=== PATIENT | female | born 1970 | race Caucasian/White ===

== ENCOUNTER → 2016-10-03 | Outpatient (CLI) | payer BC ==
[~2016-10-03] MED LIST: ADDERALL XR 10M10 MG PO; ARTHROTEC 775 MG/TAB PO; CONCERTA18 MG PO; CONCERTA54 MG PO; CYMBALTA 20MG20 MG PO; CYMBALTA 30MG30 MG PO; HCTZ 25MG TAB25 MG PO; LAMICTAL 25MG T25 MG PO; MOBIC 7.5MG7.5 MG PO; MSIR30 MG PO; NORCO 325 MG-101 TAB PO; OPANA ER30 MG PO; PERCOCET 325 MG1 TAB PO; PROZAC 20MG20 MG PO; TOPAMAX 25MG25 M1 PO; TOPAMAX50 MG PO; XANAX 0.5MG0.5 MG PO; XANAX 1MG1 MG PO; [UNRECOGNIZED DRUG - REMARK]
== END ==
LOC: BHSO 13:42
DX: F31.81 Bipolar II disorder (principal)

== ENCOUNTER → 2016-11-21 | Outpatient (CLI) | payer BC | LOC: BHSO 14:46 | DX: F41.1 Generalized anxiety disorder (principal) ==

== ENCOUNTER → 2017-01-07 | Outpatient (CLI) | payer BC | LOC: BHSO 15:26 | DX: F31.73 Bipolar disorder, in partial remission, most recent episode manic (principal) ==

== ENCOUNTER → 2017-02-20 | Outpatient (CLI) | payer BC | LOC: BHSO 15:03 | DX: F31.73 Bipolar disorder, in partial remission, most recent episode manic (principal) ==

== ENCOUNTER → 2017-03-11 | Outpatient (CLI) | payer BC | LOC: MHCPAIN 12:35 | DX: G89.29 Other chronic pain (principal); M47.817 Spondylosis without myelopathy or radiculopathy, lumbosacral region; M54.16 Radiculopathy, lumbar region; F12.90 Cannabis use, unspecified, uncomplicated | CPT/HCPCS: G0463 ==

== ENCOUNTER → 2017-03-27 | Outpatient (CLI) | payer BC | LOC: MHCPAIN 12:35 | DX: M47.817 Spondylosis without myelopathy or radiculopathy, lumbosacral region (principal) | CPT/HCPCS: J1100; Q9967 ==

== ENCOUNTER → 2017-04-09 | Outpatient (CLI) | payer BC | LOC: BHSO 15:08 | DX: F31.73 Bipolar disorder, in partial remission, most recent episode manic (principal) ==

== ENCOUNTER → 2017-05-21 | Outpatient (CLI) | payer BC | LOC: BHSO 13:44 | DX: F31.73 Bipolar disorder, in partial remission, most recent episode manic (principal) ==

== ENCOUNTER → 2017-05-22 | Outpatient (CLI) | payer BC | LOC: COL.RAD 10:22 | DX: M71.22 Synovial cyst of popliteal space [Baker], left knee (principal) ==

== ENCOUNTER → 2017-06-11 | Outpatient (CLI) | payer BC | LOC: COL.RAD 10:11 | DX: M71.22 Synovial cyst of popliteal space [Baker], left knee (principal) ==

== ENCOUNTER → 2017-07-01 | Outpatient (CLI) | payer BC ==
[~2017-07-01] MED LIST changes: +CATAPRES 0.1MG0.1 MG PO; +DEPAKOTE 250MG250 MG PO; +HYGROTON 2525 MG/TAB; +HYSINGLA60; +K-TAB10 PO; +KLONOPIN WAFERS1 MG PO; +LYRICA 50MG CAP50 MG PO; +NAPRELAN375 MG; +NUVIGIL250 MG; +SERAX 10MG10 MG/CAP PO; +ZANAFLEX CAPSULE4 MG PO
== END ==
LOC: BHSO 13:51
DX: F31.73 Bipolar disorder, in partial remission, most recent episode manic (principal)

== ENCOUNTER 2017-07-02 18:02 | Inpatient (IN) | payer BC ==
[~2017-07-02] VITALS: Ht 167.6 cm; Wt 67.9 kg
[2017-07-02] VITALS (66 sets, daily range): BP systolic 104; BP diastolic 75; PULSE 60; TEMP 97.8; O2SAT 93–100
[~2017-07-02 18:02] MED LIST changes: -CATAPRES 0.1MG0.1 MG PO; -DEPAKOTE 250MG250 MG PO; -HYGROTON 2525 MG/TAB; -HYSINGLA60; -K-TAB10 PO; -KLONOPIN WAFERS1 MG PO; -LYRICA 50MG CAP50 MG PO; -NAPRELAN375 MG; -NUVIGIL250 MG; -SERAX 10MG10 MG/CAP PO; -ZANAFLEX CAPSULE4 MG PO
[2017-07-02 18:37] LABS: BASO % 0.6 % (0.0-2.0); EOS # 0.2 (0.0-0.7); EOS % 3.4 % (0-4.0); GRAN # 2.3 (1.4-6.5); GRAN % 49.5 % (42.2-75.2); HEMOGLOBIN 13.3 g/dl (12.5-16.0); LYMPH # 1.8 (1.2-3.4); LYMPH % 37.2 % (20.0-51.0); MEAN CELL VOLUME 91 fl (80.0-100.0); MEAN CORPUSCULAR HEMOGLOBIN 33 pg (27.0-31.0); MEAN CORPUSCULAR HGB CONC 36 g/dl (33.0-37.0); MEAN PLATELET VOLUME 9.9 fl (7.4-10.4); MONO # 0.4 (0.1-0.6); MONO % 9.1 % (1.7-9.3); PLATELET COUNT 172 K/mm3 (130-400); RED BLOOD COUNT 4.06 M/mm3 (4.10-5.30); WHITE BLOOD COUNT 4.7 K/mm3 (4.8-10.8)
[2017-07-02] MEDS ORDERED: KLONOPIN WAFERS1 MG PO (18:42)
[2017-07-02] MEDS ORDERED: CATAPRES 0.1MG0.1 MG PO (18:43)
[2017-07-02] MEDS ORDERED: SERAX 10MG10 MG/CAP PO (18:43)
[2017-07-02] MEDS ORDERED: NUVIGIL250 MG (18:44)
[2017-07-02] MEDS ORDERED: ZANAFLEX CAPSULE4 MG PO (18:44)
[2017-07-02] MEDS ORDERED: NAPRELAN375 MG (18:44)
[2017-07-02] MEDS ORDERED: HYSINGLA60 (18:45)
[2017-07-02] MEDS ORDERED: HYGROTON 2525 MG/TAB (18:45)
[2017-07-02] MEDS ORDERED: DEPAKOTE 250MG250 MG PO (18:46)
[2017-07-02] MEDS ORDERED: LYRICA 50MG CAP50 MG PO (18:46)
[2017-07-02 18:47] LABS: HEMATOCRIT 36.8 % (37.0-47.0)
[2017-07-02 18:49] LABS: ADJUSTED CALCIUM 9.2 mg/dL (8.4-10.2); ALANINE AMINOTRANSFERASE 29 U/L (9-52); ALBUMIN 4.4 gm/dL (3.5-5.0); ALKALINE PHOSPHATASE 78 U/L (50-136); ANION GAP 10 mmol/L (7-16); BILIRUBIN,TOTAL 0.9 mg/dL (0.0-1.0); BLOOD UREA NITROGEN 19 mg/dL (7-17); CALCIUM 9.5 mg/dL (8.4-10.2); CARBON DIOXIDE 30 mmol/L (22-30); CHLORIDE 96 mmol/L (98-107); CREATININE, serum 0.83 mg/dL (0.52-1.25); GLUCOSE 89 mg/dL (74-106); SODIUM 136 mmol/L (137-145); TOTAL PROTEIN 6.9 gm/dL (6.4-8.2)
[2017-07-02 19:02] LABS: PROLACTIN 8.5 ng/mL (3.0-18.6)
[2017-07-02 19:09] LABS: C-REACTIVE PROTEIN < 0.5 mg/dL (0.0-0.9); POTASSIUM 2.2 mmol/L (3.4-5.0)
[2017-07-02 22:14] LABS: MAGNESIUM 2.2 mg/dL (1.6-2.3)
[2017-07-02] MEDS ORDERED: TOPAMAX 25MG25 M1 PO (22:56)
[2017-07-02] MEDS ORDERED: TOPAMAX50 MG PO (22:56)
[2017-07-03] VITALS (133 sets, daily range): BP systolic 91–111; BP diastolic 53–74; PULSE 56–62; TEMP 97.9–98.4; O2SAT 93–99
[2017-07-03 05:04] LABS: BASO % 1.1 % (0.0-2.0); EOS # 0.2 (0.0-0.7); EOS % 5.2 % (0-4.0); GRAN # 1.6 (1.4-6.5); LYMPH # 1.5 (1.2-3.4); LYMPH % 40.2 % (20.0-51.0); MEAN CELL VOLUME 92 fl (80.0-100.0); MEAN CORPUSCULAR HEMOGLOBIN 33 pg (27.0-31.0); MEAN CORPUSCULAR HGB CONC 36 g/dl (33.0-37.0); MEAN PLATELET VOLUME 10.1 fl (7.4-10.4); MONO # 0.3 (0.1-0.6); MONO % 9.2 % (1.7-9.3); PLATELET COUNT 162 K/mm3 (130-400); RED BLOOD COUNT 3.64 M/mm3 (4.10-5.30); WHITE BLOOD COUNT 3.7 K/mm3 (4.8-10.8)
[2017-07-03 05:15] LABS: HEMATOCRIT 33.4 % (37.0-47.0)
[2017-07-03 05:18] LABS: CALCIUM 8.6 mg/dL (8.4-10.2); CREATININE, serum 0.83 mg/dL (0.52-1.25); POTASSIUM 3.3 mmol/L (3.4-5.0)
[2017-07-03 08:58] LABS: PH 7 (5-8); SQUAMOUS EPITHELIAL 0-2 /hpf; URINE APPEARANCE Hazy; URINE BACTERIA None Seen /hpf; URINE BILIRUBIN Negative (NEGATIVE); URINE BLOOD Negative (NEGATIVE); URINE COLOR Yellow; URINE GLUCOSE Negative (NEGATIVE); URINE KETONE Negative (NEGATIVE); URINE LEUKOCYTE ESTERASE Negative (NEGATIVE); URINE PROTEIN(semi-quant) Negative (NEGATIVE); URINE RBC 0-2 /hpf; URINE WBC 0-2 /hpf
[2017-07-03 09:03] LABS: COLLECTION METHOD CLEAN CATCH
[2017-07-04 00:20] VITALS: BP 106/62; PULSE 68; TEMP 98.1
[2017-07-04 05:57] LABS: BASO % 0.5 % (0.0-2.0); EOS # 0.2 (0.0-0.7); EOS % 2.6 % (0-4.0); GRAN # 4.3 (1.4-6.5); GRAN % 71.1 % (42.2-75.2); HEMOGLOBIN 12.4 g/dl (12.5-16.0); LYMPH # 1.2 (1.2-3.4); LYMPH % 19.5 % (20.0-51.0); MEAN CELL VOLUME 95 fl (80.0-100.0); MEAN CORPUSCULAR HEMOGLOBIN 33 pg (27.0-31.0); MEAN CORPUSCULAR HGB CONC 34 g/dl (33.0-37.0); MONO # 0.4 (0.1-0.6); PLATELET COUNT 153 K/mm3 (130-400); RED BLOOD COUNT 3.79 M/mm3 (4.10-5.30); WHITE BLOOD COUNT 6.1 K/mm3 (4.8-10.8)
[2017-07-04 06:04] LABS: CALCIUM 8.6 mg/dL (8.4-10.2); CREATININE, serum 0.69 mg/dL (0.52-1.25); POTASSIUM 3.3 mmol/L (3.4-5.0)
[2017-07-04 06:05] VITALS: BP 102/61; PULSE 55; TEMP 98.7
[2017-07-04 08:13] VITALS: BP 98/54; PULSE 61; TEMP 97.8
[2017-07-04] MEDS ORDERED: K-TAB10 PO (09:27)
== END 2017-07-04 12:32 | disposition home or self-care (01) | DRG 641 ==
LOC: COL.ER 18:02 → ICU 20:15 → COL.ER 20:15 → MEDICAL 07-03 12:07 → ICU 07-03 12:07 → MEDICAL 07-03 13:44
PROVIDERS: Emergency Medicine; Nurse Practitioner; Nurse Practitioner Family
DX: E87.6 Hypokalemia (principal); I10 Essential (primary) hypertension; R56.9 Unspecified convulsions; F41.1 Generalized anxiety disorder; G89.29 Other chronic pain; F17.210 Nicotine dependence, cigarettes, uncomplicated
CPT/HCPCS: 99222-AI; 99238; G0378; J1650; J3480; J7030

== ENCOUNTER → 2017-07-09 | Outpatient (CLI) | payer BC ==
[~2017-07-09] MED LIST changes: +CATAPRES 0.1MG0.1 MG PO; +DEPAKOTE 250MG250 MG PO; +HYGROTON 2525 MG/TAB; +HYSINGLA60; +K-TAB10 PO; +KLONOPIN WAFERS1 MG PO; +LYRICA 50MG CAP50 MG PO; +NAPRELAN375 MG; +NUVIGIL250 MG; +SERAX 10MG10 MG/CAP PO; +ZANAFLEX CAPSULE4 MG PO
[2017-07-09 19:10] LABS: CALCIUM 9.1 mg/dL (8.4-10.2); CREATININE, serum 0.83 mg/dL (0.52-1.25); POTASSIUM 4.6 mmol/L (3.4-5.0)
== END ==
LOC: COL.LAB 17:48
PROVIDERS: Nurse Practitioner Family
DX: Z01.812 Encounter for preprocedural laboratory examination (principal); E87.6 Hypokalemia

== ENCOUNTER → 2017-07-14 | Outpatient (CLI) | payer BC | LOC: COL.CARD 09:30 | DX: G40.909 Epilepsy, unspecified, not intractable, without status epilepticus (principal) ==

== ENCOUNTER 2017-09-22 17:47 | Emergency (ER) | payer BC ==
[~2017-09-22] VITALS: Ht 167.6 cm; Wt 63.6 kg
[2017-09-22 17:49] VITALS: BP 143/73; TEMP 97.6
[2017-09-22] MEDS ORDERED: NAPROSYN500 MG PO (18:35)
[2017-09-22 18:50] VITALS: PULSE 95
== END 2017-09-22 18:55 | disposition home or self-care (01) ==
LOC: COL.ER 17:47
DX: M25.562 Pain in left knee (principal); G40.909 Epilepsy, unspecified, not intractable, without status epilepticus; X58.XXXA Exposure to other specified factors, initial encounter

== ENCOUNTER → 2017-12-11 | Outpatient (REF) ==
[~2017-12-11] MED LIST changes: +NAPROSYN500 MG PO
== END ==
LOC: ZMSC 09:48
DX: Z01.89 Encounter for other specified special examinations (principal)

== ENCOUNTER → 2018-01-01 | Outpatient (CLI) | payer BC | LOC: MC.RAD 13:00 | DX: Z12.31 Encounter for screening mammogram for malignant neoplasm of breast (principal) ==

== ENCOUNTER → 2019-01-14 | Outpatient (CLI) | payer BC | LOC: COL.RAD 08:00 | DX: S76.312A Strain of muscle, fascia and tendon of the posterior muscle group at thigh level, left thigh, initial encounter (principal) | CPT/HCPCS: J3301 ==

== ENCOUNTER → 2019-04-07 | Outpatient (CLI) | payer BC | LOC: COL.RAD 10:24 | DX: M46.1 Sacroiliitis, not elsewhere classified (principal) | CPT/HCPCS: G0260; J3301 ==

== ENCOUNTER 2019-09-12 15:42 | Emergency (ER) | payer BC ==
[~2019-09-12] VITALS: Ht 167.6 cm; Wt 83.6 kg
[2019-09-12 15:51] VITALS: BP 148/94; TEMP 98.2
[2019-09-12 16:12] LABS: BASO % 0.5 % (0.0-2.0); EOS # 0.1 (0.0-0.7); EOS % 3.8 % (0-4.0); GRAN # 2.3 (1.4-6.5); GRAN % 60.7 % (42.2-75.2); HEMATOCRIT 38.9 % (37.0-47.0); HEMOGLOBIN 12.9 g/dl (12.5-16.0); LYMPH % 27.7 % (20.0-51.0); MEAN CELL VOLUME 98 fl (80.0-100.0); MEAN CORPUSCULAR HEMOGLOBIN 33 pg (27.0-31.0); MEAN CORPUSCULAR HGB CONC 33 g/dl (33.0-37.0); MEAN PLATELET VOLUME 9.7 fl (7.4-10.4); MONO # 0.3 (0.1-0.6); MONO % 7.3 % (1.7-9.3); PLATELET COUNT 157 K/mm3 (130-400); RED BLOOD COUNT 3.96 M/mm3 (4.10-5.30); REDCELL DISTRIBUTION WIDTH-CV 11.9 % (11.5-14.5)
[2019-09-12 16:30] LABS: ALANINE AMINOTRANSFERASE 17 U/L (9-52); ALBUMIN 4.3 gm/dL (3.5-5.0); ALKALINE PHOSPHATASE 89 U/L (50-136); ANION GAP 7 mmol/L (7-16); AST,SGOT 34 U/L (15-37); BILIRUBIN,TOTAL 0.4 mg/dL (0.0-1.0); BLOOD UREA NITROGEN 15 mg/dL (7-17); CALCIUM 8.9 mg/dL (8.4-10.2); CARBON DIOXIDE 19 mmol/L (22-30); CHLORIDE 115 mmol/L (98-107); CREATININE, serum 0.72 (0.52-1.25); GLUCOSE 100 mg/dL (74-106); POTASSIUM 3.6 mmol/L (3.4-5.0); SODIUM 141 mmol/L (137-145); TOTAL PROTEIN 6.6 gm/dL (6.4-8.2)
[2019-09-12 16:34] LABS: ERYTHROCYTE SEDIMENTATION RATE 2 mm/hr (0-20)
[2019-09-12] MEDS ORDERED: FLEXERIL 1010 MG/TAB PO (16:53)
[2019-09-12 17:07] LABS: C-REACTIVE PROTEIN < 0.5 mg/dL (0.0-0.9)
[2019-09-12 17:21] VITALS: PULSE 74
== END 2019-09-12 17:22 | disposition home or self-care (01) ==
LOC: COL.ER 15:42
PROVIDERS: Emergency Medicine
DX: R51 Headache (principal)

== ENCOUNTER 2019-09-13 14:30 | Outpatient (RCR) | payer BC ==
[~2019-09-13 14:30] MED LIST changes: +FLEXERIL 1010 MG/TAB PO
== END 2019-09-14 | disposition home or self-care (01) ==
LOC: WSC
DX: M51.36 Other intervertebral disc degeneration, lumbar region (principal); M43.16 Spondylolisthesis, lumbar region

== ENCOUNTER 2020-03-05 14:59 | Emergency (ER) | payer BC ==
[~2020-03-05] VITALS: Ht 167.6 cm; Wt 75.0 kg
[2020-03-05 15:05] VITALS: TEMP 98.4
[2020-03-05] MEDS ORDERED: NORVASC 5MG5 MG/TAB PO ×3 (15:28→15:57)
[2020-03-05 15:37] LABS: BASO % 0.3 % (0.0-2.0); EOS # 0.2 (0.0-0.7); EOS % 2.6 % (0-4.0); GRAN # 4.1 (1.4-6.5); GRAN % 64.9 % (42.2-75.2); HEMATOCRIT 43.1 % (37.0-47.0); HEMOGLOBIN 14.3 g/dl (12.5-16.0); LYMPH # 1.6 (1.2-3.4); LYMPH % 25.4 % (20.0-51.0); MEAN CELL VOLUME 96 fl (80.0-100.0); MEAN CORPUSCULAR HEMOGLOBIN 32 pg (27.0-31.0); MEAN CORPUSCULAR HGB CONC 33 g/dl (33.0-37.0); MEAN PLATELET VOLUME 10.1 fl (7.4-10.4); MONO # 0.4 (0.1-0.6); MONO % 6.6 % (1.7-9.3); PLATELET COUNT 176 K/mm3 (130-400); RED BLOOD COUNT 4.47 M/mm3 (4.10-5.30); REDCELL DISTRIBUTION WIDTH-CV 12.1 % (11.5-14.5)
[2020-03-05 15:51] LABS: ALANINE AMINOTRANSFERASE 20 U/L (4-34); ALBUMIN 4.7 gm/dL (3.5-5.0); ALKALINE PHOSPHATASE 88 U/L (50-136); ANION GAP 6 mmol/L (7-16); AST,SGOT 27 U/L (15-37); BILIRUBIN,TOTAL 0.8 mg/dL (0.0-1.0); BLOOD UREA NITROGEN 14 mg/dL (7-17); CALCIUM 9.4 mg/dL (8.4-10.2); CARBON DIOXIDE 22 mmol/L (22-30); CHLORIDE 112 mmol/L (98-107); CREATININE, serum 0.85 (0.52-1.25); GLUCOSE 94 mg/dL (74-106); LIPASE 65 U/L (23-300); POTASSIUM 3.7 mmol/L (3.4-5.0); SODIUM 140 mmol/L (137-145); TOTAL PROTEIN 7.4 gm/dL (6.4-8.2)
[2020-03-05 15:54] LABS: C-REACTIVE PROTEIN < 0.5 mg/dL (0.0-0.9)
[2020-03-05 16:08] LABS: TROPONIN-I < 0.012 ng/mL (0.000-0.035)
[2020-03-05 16:23] LABS: COLLECTION METHOD CLEAN CATCH
[2020-03-05 16:34] LABS: MUCOUS Present /lpf; PH 5 (5-8); SQUAMOUS EPITHELIAL 0-2 /hpf; URINE APPEARANCE Hazy; URINE BACTERIA None Seen /hpf; URINE BILIRUBIN Negative (NEGATIVE); URINE BLOOD Negative (NEGATIVE); URINE COLOR Amber; URINE GLUCOSE Negative (NEGATIVE); URINE KETONE Trace (NEGATIVE); URINE LEUKOCYTE ESTERASE 2+ (NEGATIVE); URINE NITRATE Negative (NEGATIVE); URINE PROTEIN(semi-quant) 1+ (NEGATIVE); URINE WBC >50 /hpf
[2020-03-05] MEDS ORDERED: CEPHALEXIN500 M1 PO (16:38)
[2020-03-05 17:15] VITALS: BP 128/94; PULSE 74
== END 2020-03-05 17:17 | disposition home or self-care (01) ==
LOC: COL.ER 14:59
PROVIDERS: Emergency Medicine
DX: R42 Dizziness and giddiness (principal); I10 Essential (primary) hypertension; N39.0 Urinary tract infection, site not specified; Z90.710 Acquired absence of both cervix and uterus
CPT/HCPCS: J0696; J2060; J7030

== ENCOUNTER 2020-03-19 10:04 | Emergency (ER) | payer BC ==
[~2020-03-19] VITALS: Ht 167.6 cm; Wt 72.7 kg
[~2020-03-19 10:04] MED LIST changes: +CEPHALEXIN500 M1 PO; +NORVASC 5MG5 MG/TAB PO; -NUVIGIL250 MG; +NUVIGIL250 MG PO
[2020-03-19 10:07] VITALS: TEMP 97.9
[2020-03-19 11:07] LABS: COLLECTION METHOD CLEAN CATCH
[2020-03-19 11:17] LABS: BASO # 0.1 (0.0-0.2); BASO % 0.6 % (0.0-2.0); EOS # 0.2 (0.0-0.7); EOS % 1.8 % (0-4.0); GRAN # 8.2 (1.4-6.5); GRAN % 83.8 % (42.2-75.2); HEMOGLOBIN 13.4 g/dl (12.5-16.0); LYMPH # 0.8 (1.2-3.4); LYMPH % 8.6 % (20.0-51.0); MEAN CELL VOLUME 98 fl (80.0-100.0); MEAN CORPUSCULAR HEMOGLOBIN 32 pg (27.0-31.0); MEAN CORPUSCULAR HGB CONC 33 g/dl (33.0-37.0); MEAN PLATELET VOLUME 10.5 fl (7.4-10.4); MONO # 0.5 (0.1-0.6); MONO % 4.9 % (1.7-9.3); PLATELET COUNT 167 K/mm3 (130-400); RED BLOOD COUNT 4.19 M/mm3 (4.10-5.30)
[2020-03-19 11:21] LABS: ALBUMIN 4.4 gm/dL (3.5-5.0); BILIRUBIN,TOTAL 0.5 mg/dL (0.0-1.0); CALCIUM 9.4 mg/dL (8.4-10.2); CREATININE, serum 1.01 (0.52-1.25); POTASSIUM 4.2 mmol/L (3.4-5.0); TOTAL PROTEIN 7.1 gm/dL (6.4-8.2)
[2020-03-19 11:27] LABS: PH 7 (5-8); SQUAMOUS EPITHELIAL 0-2 /hpf; URINE APPEARANCE Hazy; URINE BACTERIA None Seen /hpf; URINE BILIRUBIN Negative (NEGATIVE); URINE BLOOD 3+ (NEGATIVE); URINE COLOR Yellow; URINE GLUCOSE Negative (NEGATIVE); URINE KETONE Negative (NEGATIVE); URINE LEUKOCYTE ESTERASE Negative (NEGATIVE); URINE NITRATE Negative (NEGATIVE); URINE PROTEIN(semi-quant) Negative (NEGATIVE); URINE RBC >50 /hpf; URINE UROBILINOGEN Negative (NEGATIVE)
[2020-03-19] MEDS ORDERED: TORADOL 10MG TA10 MG PO (12:57)
[2020-03-19] MEDS ORDERED: ZOFRAN ODT4 MG PO (12:57)
[2020-03-19 13:12] VITALS: BP 139/93; PULSE 68
== END 2020-03-19 13:12 | disposition home or self-care (01) ==
LOC: COL.ER 10:04
PROVIDERS: Physician Assistant
DX: N13.2 Hydronephrosis with renal and ureteral calculous obstruction (principal); F41.9 Anxiety disorder, unspecified; M79.7 Fibromyalgia; F17.210 Nicotine dependence, cigarettes, uncomplicated; Z90.710 Acquired absence of both cervix and uterus
CPT/HCPCS: J1885; J2405; J7030; Q9967

== ENCOUNTER 2020-03-21 08:28 | Day surgery (SDC) | payer BC ==
[~2020-03-21] VITALS: Ht 167.6 cm; Wt 73.3 kg
[~2020-03-21 08:28] MED LIST changes: +TORADOL 10MG TA10 MG PO; +ZOFRAN ODT4 MG PO
[2020-03-21 08:55] VITALS: BP 135/88; PULSE 55; TEMP 97.8
[2020-03-21] MEDS ORDERED: NORVASC2.5 MG PO (08:58)
[2020-03-21] MEDS ORDERED: NORCO 325 MG-101 TAB PO (09:04)
[2020-03-21] MEDS ORDERED: PRILOSEC 20MG20 MG PO (09:05)
[2020-03-21] MEDS ORDERED: CLARITIN 1010 MG/TAB PO (09:06)
[2020-03-21] MEDS ORDERED: EFFEXOR 75M75 MG/TAB PO (09:11)
[2020-03-21] MEDS ORDERED: K-DUR 10 MEQ T10 MEQ PO (09:15)
[2020-03-21] MEDS ORDERED: ZOFRAN 4MG T4 MG/TAB PO (09:16)
[2020-03-21 11:43] VITALS: BP 126/82; PULSE 64; TEMP 98
--- NOTE | 2020-03-21 11:43 | NUR ---
The patient arrived back to [facility] from the recovery room at this time. The patient appears alert and oriented and denies any pain or nausea at this time. The patient's post operative vital signs were started at this time. The patient agrees to try some chocolate pudding and ice water at this time. The patient's mother was brought back to be at her bedside. Will continue to monitor the patient.
[2020-03-21 12:00] VITALS: BP 131/82; PULSE 65
--- NOTE | 2020-03-21 12:00 | NUR ---
The patient appears to be tolerating the food and drink well. Vital signs appear stable. Call light remains within reach. Mother is at her bedside. Will continue to monitor the patient.
[2020-03-21] MEDS ORDERED: TORADOL 10MG TA10 MG PO (12:07)
[2020-03-21] MEDS ORDERED: FLOMAX 0.40.4 MG/CAP PO (12:07)
--- NOTE | 2020-03-21 12:15 | NUR ---
The patient has finished her food and drink and appeared to tolerate both well. Vital signs appear stable. Call light is within reach. Will continue to monitor the patient.
[2020-03-21 12:17] VITALS: BP 127/82; PULSE 57
[2020-03-21 12:30] VITALS: BP 127/52; PULSE 58
--- NOTE | 2020-03-21 12:30 | NUR ---
The patient reports feeling nauseous and having abominal cramps at this time. Vital signs appear stable. Call light is within reach. Will continue to monitor the patient.
--- NOTE | 2020-03-21 12:45 | NUR ---
The patient ambulated to the bathroom with the stand by assistance of one nurse and appeared to tolerate the activity well. The patient voided without difficulty and voices a desire to be discharged home.
--- NOTE | 2020-03-21 12:50 | NUR ---
Discharge instructions were reviewed with the patient and her mother at this time. They both verbalized understanding and have no questions for the nurse at this time. The patient's IV to her right hand was removed and a pressure dressing was applied to the site. The nurse instructed the patient to get dressed and notify the staff when she is ready to be escorted out.
--- NOTE | 2020-03-21 13:00 | NUR ---
The patient was escorted out via wheelchair to a private vehicle by JACINTO Fox. The patient's belongings and discharge paperwork were sent with her. The patient's mother is present to drive her home.
[2020-03-21 13:18] VITALS: BP 126/82; PULSE 57; TEMP 98.8
== END 2020-03-21 13:00 | disposition home or self-care (01) ==
LOC: SDCO 08:28
DX: N20.1 Calculus of ureter (principal); I10 Essential (primary) hypertension; Z88.1 Allergy status to other antibiotic agents; Z90.710 Acquired absence of both cervix and uterus; J45.909 Unspecified asthma, uncomplicated; Z87.891 Personal history of nicotine dependence; K21.9 Gastro-esophageal reflux disease without esophagitis; G89.29 Other chronic pain; F41.9 Anxiety disorder, unspecified; F32.9 Major depressive disorder, single episode, unspecified; M19.90 Unspecified osteoarthritis, unspecified site; F11.20 Opioid dependence, uncomplicated
CPT/HCPCS: C1769; C2617; J0690; J1100; J1885; J2250; J2405; J2704; J3010; J7120

== ENCOUNTER → 2021-03-02 | Outpatient (CLI) | payer BC ==
[~2021-03-02] MED LIST changes: +CLARITIN 1010 MG/TAB PO; +EFFEXOR 75M75 MG/TAB PO; +FLOMAX 0.40.4 MG/CAP PO; +K-DUR 10 MEQ T10 MEQ PO; +NORVASC2.5 MG PO; +PRILOSEC 20MG20 MG PO; +ZOFRAN 4MG T4 MG/TAB PO
== END ==
LOC: COL.RAD 14:02
DX: J01.00 Acute maxillary sinusitis, unspecified (principal); J32.2 Chronic ethmoidal sinusitis

== ENCOUNTER 2022-01-06 08:56 | Emergency (ER) | payer BC ==
[~2022-01-06] VITALS: Ht 167.6 cm; Wt 76.8 kg
[2022-01-06 09:05] VITALS: TEMP 97.7
[2022-01-06 09:12] LABS: COLLECTION METHOD CLEAN CATCH
[2022-01-06 09:34] LABS: BASO % 0.7 % (0.0-2.0); EOS # 0.2 K/mm3 (0.0-0.7); EOS % 4.5 % (0.0-4.0); GRAN # 2.4 K/mm3 (1.4-6.5); GRAN % 60.6 % (42.2-75.2); HEMATOCRIT 37.9 % (37.0-47.0); HEMOGLOBIN 13.2 g/dl (12.5-16.0); LYMPH % 25.8 % (20.0-51.0); MEAN CELL VOLUME 91 fl (80.0-100.0); MEAN CORPUSCULAR HEMOGLOBIN 32 pg (27-31); MEAN CORPUSCULAR HGB CONC 35 g/dl (33.0-37.0); MEAN PLATELET VOLUME 9.5 fl (7.4-10.4); MONO # 0.3 K/mm3 (0.1-0.6); MONO % 8.2 % (1.7-9.3); PLATELET COUNT 193 K/mm3 (130-400); RED BLOOD COUNT 4.17 M/mm3 (4.10-5.30)
[2022-01-06 09:39] LABS: AMORPHOUS CRYSTAL Present (NOT PRESENT); PH 7 (5-8); SQUAMOUS EPITHELIAL 0-2 /hpf (0-10); URINE APPEARANCE Cloudy (CLEAR/HAZY); URINE BACTERIA None Seen /hpf (NONE SEEN); URINE BILIRUBIN Negative (NEGATIVE); URINE BLOOD Negative (NEGATIVE); URINE COLOR Yellow (YELLOW); URINE GLUCOSE Negative (NEGATIVE); URINE KETONE Negative (NEGATIVE); URINE LEUKOCYTE ESTERASE Negative (NEGATIVE); URINE NITRATE Negative (NEGATIVE); URINE PROTEIN(semi-quant) Negative (NEGATIVE); URINE UROBILINOGEN Negative (NEGATIVE)
[2022-01-06 09:49] LABS: ALBUMIN 4.3 gm/dL (3.5-5.0); BILIRUBIN,TOTAL 0.4 mg/dL (0.2-1.2); CALCIUM 8.6 mg/dL (8.4-10.2); CREATININE, serum 0.81 mg/dL (0.57-1.11); POTASSIUM 3.7 mmol/L (3.5-4.5); TOTAL PROTEIN 6.6 gm/dL (6.2-8.1)
[2022-01-06 11:18] VITALS: BP 144/92
[2022-01-06] MEDS ORDERED: ZOFRAN ODT4 MG PO ×3 (11:30→12:40)
[2022-01-06] MEDS ORDERED: TORADOL 10MG TA10 MG PO ×3 (11:30→12:40)
[2022-01-06 11:40] VITALS: PULSE 62
== END 2022-01-06 11:40 | disposition home or self-care (01) ==
LOC: COL.ER 08:56
PROVIDERS: Student in an Organized Health Care Education/Training Program
DX: N20.2 Calculus of kidney with calculus of ureter (principal); Z96.0 Presence of urogenital implants
CPT/HCPCS: J2405; Q9967

== ENCOUNTER 2022-05-12 02:41 | Emergency (ER) | payer BC ==
[~2022-05-12] VITALS: Ht 167.6 cm; Wt 72.7 kg
[~2022-05-12 02:41] MED LIST changes: -NORVASC2.5 MG PO
[2022-05-12 02:45] VITALS: TEMP 98.7
[2022-05-12 03:31] LABS: BASO % 0.4 % (0.0-2.0); EOS # 0.1 K/mm3 (0.0-0.7); EOS % 1.4 % (0.0-4.0); GRAN # 7.3 K/mm3 (1.4-6.5); GRAN % 78.2 % (42.2-75.2); HEMOGLOBIN 12.1 g/dl (12.5-16.0); LYMPH % 11.1 % (20.0-51.0); MEAN CELL VOLUME 95 fl (80.0-100.0); MEAN CORPUSCULAR HEMOGLOBIN 32 pg (27-31); MEAN CORPUSCULAR HGB CONC 33 g/dl (33.0-37.0); MEAN PLATELET VOLUME 9.6 fl (7.4-10.4); MONO # 0.8 K/mm3 (0.1-0.6); MONO % 8.6 % (1.7-9.3); PLATELET COUNT 184 K/mm3 (130-400); RED BLOOD COUNT 3.82 M/mm3 (4.10-5.30); REDCELL DISTRIBUTION WIDTH-CV 11.9 % (11.5-14.5)
[2022-05-12 03:32] LABS: HEMATOCRIT 36.2 % (37.0-47.0)
[2022-05-12 03:50] LABS: ALBUMIN 4.1 gm/dL (3.5-5.0); BILIRUBIN,TOTAL 0.3 mg/dL (0.2-1.2); CALCIUM 8.8 mg/dL (8.4-10.2); CREATININE, serum 1.42 mg/dL (0.57-1.11); POTASSIUM 3.7 mmol/L (3.5-4.5); TOTAL PROTEIN 5.9 gm/dL (6.2-8.1)
[2022-05-12 04:11] LABS: COLLECTION METHOD CLEAN CATCH
[2022-05-12 04:28] LABS: AMORPHOUS CRYSTAL Present (NOT PRESENT); MUCOUS Present (NOT PRESENT); SQUAMOUS EPITHELIAL 0-2 /hpf (0-10); URINE BACTERIA Rare /hpf (NONE SEEN)
[2022-05-12 04:30] LABS: URINE APPEARANCE Cloudy (CLEAR/HAZY); URINE COLOR Yellow (YELLOW)
[2022-05-12 04:31] LABS: URINE BLOOD TRACE-INTACT (NEGATIVE); URINE GLUCOSE Negative (NEGATIVE); URINE KETONE Negative (NEGATIVE); URINE NITRATE Negative (NEGATIVE); URINE PROTEIN(semi-quant) Negative (NEGATIVE); URINE UROBILINOGEN 0.2 E.U/dL (0.2-1.0)
[2022-05-12] MEDS ORDERED: PERCOCET 325 MG1 TA2 PO (05:56)
[2022-05-12] MEDS ORDERED: ZOFRAN ODT4 MG PO (05:58)
[2022-05-12] MEDS ORDERED: FLOMAX 0.40.4 MG/CAP PO (05:58)
[2022-05-12 08:11] VITALS: BP 112/71; PULSE 63
[2022-05-13] MEDS ORDERED: TOPAMAX 100MG100 M1 PO (15:59)
[2022-05-13] MEDS ORDERED: ABILIFY20 MG PO (15:59)
[2022-05-13] MEDS ORDERED: BUSPAR10 MG PO (15:59)
[2022-05-13] MEDS ORDERED: VESICARE 5MG5 MG PO (16:00)
[2022-05-13] MEDS ORDERED: PRILOSEC 20MG20 MG PO (16:00)
[2022-05-13] MEDS ORDERED: MOBIC15 MG PO (16:00)
[2022-05-13] MEDS ORDERED: ADDERALL20 MG PO (16:01)
[2022-05-13] MEDS ORDERED: NORCO 325 MG-51 TAB PO (17:20)
[2022-05-13] MEDS ORDERED: PYRIDIUM 100MG100 MG PO (17:20)
== END 2022-05-12 08:22 | disposition home or self-care (01) ==
LOC: COL.ER 02:41
PROVIDERS: Personal Emergency Response Attendant
DX: N13.2 Hydronephrosis with renal and ureteral calculous obstruction (principal); F17.290 Nicotine dependence, other tobacco product, uncomplicated; Z98.890 Other specified postprocedural states
CPT/HCPCS: J1885; J2270; J2405; J7030

== ENCOUNTER 2022-05-13 15:05 | Day surgery (SDC) | payer BC ==
[~2022-05-13] VITALS: Ht 167.6 cm; Wt 72.3 kg
[~2022-05-13 15:05] MED LIST changes: +PERCOCET 325 MG1 TA2 PO
[2022-05-13] MEDS ORDERED: ABILIFY20 MG PO (15:59)
[2022-05-13] MEDS ORDERED: TOPAMAX 100MG100 M1 PO (15:59)
[2022-05-13] MEDS ORDERED: BUSPAR10 MG PO (15:59)
[2022-05-13] MEDS ORDERED: VESICARE 5MG5 MG PO (16:00)
[2022-05-13] MEDS ORDERED: PRILOSEC 20MG20 MG PO (16:00)
[2022-05-13] MEDS ORDERED: MOBIC15 MG PO (16:00)
[2022-05-13] MEDS ORDERED: ADDERALL20 MG PO (16:01)
[2022-05-13 16:16] VITALS: BP 105/84; PULSE 92; TEMP 97.1
[2022-05-13] MEDS ORDERED: NORCO 325 MG-51 TAB PO (17:20)
[2022-05-13] MEDS ORDERED: PYRIDIUM 100MG100 MG PO (17:20)
[2022-05-13 18:15] VITALS: BP 134/85; PULSE 86; TEMP 98.2
[2022-05-13 18:30] VITALS: BP 146/83; PULSE 79
[2022-05-13 18:45] VITALS: BP 142/88; PULSE 79
--- NOTE | 2022-05-13 18:48 | NUR ---
Pt recently arrived to the floor from [facility]. She was settled in her room by another nurse. Pt has been up to the restroom, voided without difficulty. She does have some chocolate pudding in the room, but reports feeling a little nauseated. She does have sprite and water as well. Discussed her getting some tylenol. PT reported that she does not need any pain medication as she just took her home percocet. Discussed with pt and she reports taking 2, 5mg Percocet. Educated to always notify nursing prior to taking any medications. Pts mom is at the bedside.
[2022-05-13 19:00] VITALS: BP 1389/92; PULSE 81; TEMP 98.5
[2022-05-13 19:30] VITALS: BP 140/84; PULSE 77; TEMP 98.5
--- NOTE | 2022-05-13 20:00 | NUR ---
DISCHARGE NOTE: PATIENT REPORTED NAUSEA AT BEGINNING OF SHIFT. PATIENT GIVEN PRN ZOFRAN AND CRACKERS AND PATIENT REPORTED NAUSEA BETTER. PATIENT IV DISCONTINUED AND PAITENT ESCORTED FROM BUILDING VIA WHEELCHAIR AND SURGICAL STAFF MEMBER. PATIENT VERBALIZED UNDERSTANDING OF MEDICATIONS AND HAD NO QUESTIONS OR CONCERNS. VITAL SIGNS WITHIN NORMAL LIMITS AND PATIENT REPORTED PAIN CONTROLLED.
== END 2022-05-13 20:15 | disposition home or self-care (01) ==
LOC: SDCO 15:05 → SURG 18:15 → SDCO 20:15
DX: N20.1 Calculus of ureter (principal)
CPT/HCPCS: OP; C1769; J0690; J1100; J2405; J2704; J3010; J7120

== ENCOUNTER → 2023-01-10 | Outpatient (CLI) | payer BC ==
[~2023-01-10] MED LIST changes: +ABILIFY20 MG PO; +ADDERALL20 MG PO; +BUSPAR10 MG PO; +MOBIC15 MG PO; +NORCO 325 MG-51 TAB PO; +PYRIDIUM 100MG100 MG PO; +TOPAMAX 100MG100 M1 PO; +VESICARE 5MG5 MG PO
== END ==
LOC: MC.RAD 07:00
DX: N63.20 Unspecified lump in the left breast, unspecified quadrant (principal)

== ENCOUNTER 2024-06-19 02:33 | Emergency (ER) | payer OTHER ==
[~2024-06-19] VITALS: Ht 170.2 cm; Wt 61.4 kg
[2024-06-19 02:37] VITALS: TEMP 97.8
[2024-06-19 02:53] LABS: COLLECTION METHOD CLEAN CATCH
[2024-06-19 03:03] LABS: PH 6.5 (5.0-8.5); URINE APPEARANCE CLOUDY (CLEAR/HAZY); URINE BLOOD 1+ (NEGATIVE); URINE COLOR YELLOW (YELLOW); URINE GLUCOSE NEGATIVE (NEGATIVE); URINE KETONE TRACE (NEGATIVE); URINE NITRATE POSITIVE (NEGATIVE); URINE PROTEIN(semi-quant) 1+ (NEGATIVE)
[2024-06-19] MEDS ORDERED: Ondansetron 4 MG/2 ML VIAL IV ONE (03:15)
[2024-06-19] MEDS ORDERED: NS 1,000 ML IV ONE (03:15)
[2024-06-19 03:47] LABS: BASO % 0.5 % (0.0-2.0); EOS # 0.1 K/mm3 (0.0-0.7); EOS % 2.1 % (0.0-4.0); GRAN # 4.4 K/mm3 (1.4-6.5); GRAN % 68.9 % (42.2-75.2); HEMATOCRIT 37.9 % (37.0-47.0); HEMOGLOBIN 12.8 g/dl (12.5-16.0); LYMPH # 1.3 K/mm3 (1.2-3.4); LYMPH % 20.5 % (20.0-51.0); MEAN CELL VOLUME 94 fl (80.0-100.0); MEAN CORPUSCULAR HEMOGLOBIN 32 pg (27-31); MEAN CORPUSCULAR HGB CONC 34 g/dl (33.0-37.0); MEAN PLATELET VOLUME 10.5 fl (7.4-10.4); MONO # 0.5 K/mm3 (0.1-0.6); MONO % 7.8 % (1.7-9.3); PLATELET COUNT 201 K/mm3 (130-400); RED BLOOD COUNT 4.03 M/mm3 (4.10-5.30); REDCELL DISTRIBUTION WIDTH-CV 12.1 % (11.5-14.5)
[2024-06-19 04:00] LABS: ALBUMIN 4.2 g/dL (3.5-5.0); BILIRUBIN,TOTAL 0.4 mg/dL (0.2-1.2); CALCIUM 9.5 mg/dL (8.4-10.2); CREATININE, serum 1.05 mg/dL (0.57-1.11); POTASSIUM 3.6 mEq/L (3.5-4.5); TOTAL PROTEIN 6.4 g/dl (6.2-8.1)
[2024-06-19] MEDS ORDERED: Iohexol 300 - 100 ML VIAL IV ONE (04:25)
[2024-06-19] MEDS ORDERED: NS 50 ML IV ONE (04:34)
[2024-06-19] MEDS ORDERED: CEPHALEXIN500 M1 PO (05:11)
[2024-06-19] MEDS ORDERED: cefTRIAXone 2 G in Water For Injection,Sterile 20 ML IV ONE (05:15)
[2024-06-19 05:27] VITALS: BP 95/65; PULSE 58
== END 2024-06-19 05:27 | disposition home or self-care (01) ==
LOC: COL.ER 02:33
PROVIDERS: Emergency Medicine; Physician Assistant
DX: N39.0 Urinary tract infection, site not specified (principal); K52.9 Noninfective gastroenteritis and colitis, unspecified; Z87.442 Personal history of urinary calculi; Z98.890 Other specified postprocedural states; Z88.2 Allergy status to sulfonamides
CPT/HCPCS: J0696; J2405; J7030; Q9967

== ENCOUNTER 2024-07-17 12:06 | Emergency (ER) | payer OTHER ==
[~2024-07-17] VITALS: Ht 165.1 cm; Wt 54.5 kg
[2024-07-17 12:19] VITALS: TEMP 97.6
[2024-07-17 13:27] LABS: COLLECTION METHOD CLEAN CATCH
[2024-07-17 13:32] LABS: BASO % 0.8 % (0.0-2.0); EOS # 0.2 K/mm3 (0.0-0.7); EOS % 3.6 % (0.0-4.0); GRAN # 2.8 K/mm3 (1.4-6.5); GRAN % 54.9 % (42.2-75.2); HEMATOCRIT 43.9 % (37.0-47.0); HEMOGLOBIN 14.9 g/dl (12.5-16.0); LYMPH # 1.6 K/mm3 (1.2-3.4); LYMPH % 31.8 % (20.0-51.0); MEAN CELL VOLUME 93 fl (80.0-100.0); MEAN CORPUSCULAR HEMOGLOBIN 32 pg (27-31); MEAN CORPUSCULAR HGB CONC 34 g/dl (33.0-37.0); MONO # 0.4 K/mm3 (0.1-0.6); MONO % 8.7 % (1.7-9.3); PLATELET COUNT 262 K/mm3 (130-400); RED BLOOD COUNT 4.72 M/mm3 (4.10-5.30)
[2024-07-17 13:40] LABS: PH 6.5 (5.0-8.5); URINE APPEARANCE CLEAR (CLEAR/HAZY); URINE BLOOD 2+ (NEGATIVE); URINE COLOR YELLOW (YELLOW); URINE GLUCOSE NEGATIVE (NEGATIVE); URINE KETONE NEGATIVE (NEGATIVE); URINE NITRATE POSITIVE (NEGATIVE); URINE PROTEIN(semi-quant) NEGATIVE (NEGATIVE); URINE UROBILINOGEN 0.2 E.U/dL (0.2-1.0)
[2024-07-17 13:46] LABS: ALBUMIN 4.8 g/dL (3.5-5.0); CALCIUM 10.2 mg/dL (8.4-10.2); CREATININE, serum 0.98 mg/dL (0.57-1.11); MAGNESIUM 2.6 mg/dL (1.6-2.6); TOTAL PROTEIN 7.5 g/dl (6.2-8.1)
[2024-07-17 14:08] LABS: TSH w REFLEX 1.824 uIU/mL (0.350-4.940)
[2024-07-17] MEDS ORDERED: cefTRIAXone 1 G in Water For Injection,Sterile 10 ML IV ONE (14:45)
[2024-07-17] MEDS ORDERED: CEPHALEXIN500 M1 PO (15:12)
[2024-07-17 15:43] VITALS: BP 120/83; PULSE 78
--- NOTE | 2024-07-17 16:44 | NUR ---
Social workers met with patient in room to discuss discharge planning and possible needs for resources. Upon entry, patient was crying and in distress, stating that she "is just angry" and that she was "in pain, and nobody will listen to me." Patient spoke with social workers about her recent changes in health care, her frustrations with the current state of her health, and her perceived lack of support from her family and those around her. Patient states that she is on various medications as well as receiving services from [facility] for her mental health conditions. Social workers offered support and community resources to patient, but patient declined assistance at this time. Patient plans to return to her home with her two sons. No further needs at this time.
== END 2024-07-17 15:44 | disposition home or self-care (01) ==
LOC: COL.ER 12:06
PROVIDERS: Emergency Medicine
DX: N39.0 Urinary tract infection, site not specified (principal)
CPT/HCPCS: J0696

== ENCOUNTER 2024-07-21 06:04 | Emergency (ER) | payer OTHER ==
[~2024-07-21] VITALS: Ht 167.6 cm; Wt 61.4 kg
[2024-07-21 06:26] VITALS: BP 125/85; PULSE 70; TEMP 98.2
== END 2024-07-21 08:42 | disposition left against medical advice (07) ==
LOC: COL.ER 06:04
DX: M54.50 Low back pain, unspecified (principal); R46.89 Other symptoms and signs involving appearance and behavior; R20.2 Paresthesia of skin